=== PATIENT | male | born 1980 | race African-American/Black ===

== ENCOUNTER 2018-09-28 13:56 | Emergency (ER) | payer OTHER ==
[~2018-09-28] VITALS: Ht 172.7 cm; Wt 106.3 kg
[2018-09-28 13:58] VITALS: Ht 172.7 cm; Wt 106.3 kg
[2018-09-28] MEDS ORDERED: ASPIRIN 325 MG TAB PO STA (15:25)
[2018-09-28] MEDS ORDERED: LIDOCAINE/MYLANTA 40 ML BTL PO ONE (15:30)
--- NOTE | 2018-09-28 15:32 | ERD ---
ER Documentation Chief Complaint Chief Complaint Pt. woke up with left sided chest pain, rad to left shoulder. HPI 38-year-old male with a history of hypertension, hyperlipidemia, seizures and remote appendectomy presents to the ED complaining of chest pain. Patient reports just prior to arrival he was lying in his bed for approximately 45 minutes when he experienced unprovoked, acute onset of moderate, sharp left upper chest and shoulder pain without nausea, vomiting or diaphoresis. Mild, generalized, burning abdominal pain which localized to the epigastrium. No hematemesis, hematochezia or melanotic stools. No leg pain or swelling. No URI symptoms, cough or hemoptysis. No relieving or exacerbating factors. No fevers or chills. ROS All systems reviewed and are negative except as per history of present illness. Medications Home Meds Reported Medications Lengby-3 Acid Ethyl Esters (Lovaza) 1 Gm Capsule, 2 GM PO BID, CAP 09/28/18 Divalproex Sodium* (Depakote ER*) 500 Mg Tabsr, 500 MG PO BID, #30 TAB.SA 09/28/18 Quetiapine Fumarate* (Quetiapine Fumarate*) 300 Mg Tablet, 300 MG PO BID, TAB 09/28/18 Fenofibrate, Micronized (Fenofibrate) 134 Mg Capsule, 134 MG PO DAILY, CAP 09/28/18 Amlodipine Besylate* (Amlodipine Besylate*) 10 Mg Tablet, 10 MG PO DAILY, #30 TAB 09/28/18 Hydrochlorothiazide* (Hydrochlorothiazide*) 25 Mg Tab, 25 MG PO DAILY, #30 TAB 09/28/18 Prazosin Hcl* (Prazosin Hcl*) 1 Mg Capsule, 1 MG PO TID, CAP 09/28/18 Allergies Allergies: Coded Allergies: No Known Allergy (Unverified , 09/28/18) PMhx/Soc Reviewed in chart. As per HPI. 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 Physical Exam Vitals Vital Signs Date Temp Pulse Resp B/P (MAP) Pulse Ox O2 O2 Flow FiO2 Time Delivery Rate 09/28/18 66 16 130/63 97 Room Air 20:26 (85) 09/28/18 98.1 74 18 109/77 96 Room Air 18:17 (88) 09/28/18 97.5 99 20 135/90 97 13:58 (105) Physical Exam Const: No acute distress Head: Atraumatic Eyes: Normal Conjunctiva ENT: Normal External Ears, Nose and Mouth. Neck: Full range of motion. Nontender. No JVD. Carotids are 2+ bilateral without bruits. Resp: Clear to auscultation bilaterally Chest Wall: Reproducible left chest wall tenderness. No crepitus, ecchymosis or deformity. Cardio: Regular rate and rhythm, no murmurs Abd: Soft, non tender, non distended. Normal bowel sounds. No rebound or guarding. No masses or abnormal pulsations. Skin: No petechiae or rashes Back: No midline or flank tenderness Ext: No cyanosis, or edema. Pulses 4+ in all extremities.. No focal deficit observed. Neur: Awake and alert Psych: Normal Mood and Affect Result Diagram: 09/28/18 1533 09/28/18 1533 Results 24 hrs Laboratory Tests Test 09/28/18 15:33 09/28/18 18:40 White Blood Count 12.5 10^3/ul Red Blood Count 5.02 10^6/ul Hemoglobin 14.8 g/dl Hematocrit 45.4 % Mean Corpuscular Volume 90.4 fl Mean Corpuscular Hemoglobin 29.5 pg Mean Corpuscular Hemoglobin Concent 32.6 g/dl Red Cell Distribution Width 13.2 % Platelet Count 319 10^3/UL Mean Platelet Volume 9.2 fl Immature Granulocytes % 0.600 % Neutrophils % 72.6 % Lymphocytes % 18.8 % Monocytes % 6.3 % Eosinophils % 1.1 % Basophils % 0.6 % Nucleated Red Blood Cells % 0.0 /100WBC Immature Granulocytes # 0.070 10^3/ul Neutrophils # 9.1 10^3/ul Lymphocytes # 2.4 10^3/ul Monocytes # 0.8 10^3/ul Eosinophils # 0.1 10^3/ul Basophils # 0.1 10^3/ul Nucleated Red Blood Cells # 0.0 10^3/ul Sodium Level 141 mmol/L Potassium Level 4.1 mmol/L Chloride Level 101 mmol/L Carbon Dioxide Level 24 mmol/L Anion Gap 16 Blood Urea Nitrogen 12 mg/dl Creatinine 1.01 mg/dl Est Glomerular Filtrat Rate mL/min > 60 mL/min Glucose Level 91 mg/dl Calcium Level 9.8 mg/dl Total Bilirubin 0.3 mg/dl Direct Bilirubin 0.00 mg/dl Indirect Bilirubin 0.3 mg/dl Aspartate Amino Transf (AST/SGOT) 33 IU/L Alanine Aminotransferase (ALT/SGPT) 22 IU/L Alkaline Phosphatase 68 IU/L Troponin I < 0.012 ng/ml < 0.012 ng/ml Total Protein 8.5 g/dl Albumin 4.6 g/dl Globulin 3.90 g/dl Albumin/Globulin Ratio 1.17 Lipase 108 U/L Current Medications Medications Dose Sig/Vandana Start Time Status Last (Trade) Ordered Route PRN Stop Time Admin Dose Reason Admin Aspirin 325 mg ONCE STAT 09/28/18 DC 09/28/18 (Aspirin) PO 15:25 15:36 09/28/18 15:27 40 ml ONCE ONCE 09/28/18 DC 09/28/18 Miscellaneous PO 15:30 15:36 Medication 09/28/18 15:31 (Gi Cocktail (2)) Ketorolac 15 mg ONCE STAT 09/28/18 DC 09/28/18 Tromethamine IV 19:27 19:38 (Toradol) 09/28/18 19:28 Procedures/MDM DOCUMENTS REVIEWED: ED nurse, EKG: Time: 14:00. Sinus rhythm. Ventricular rate 95. No ectopy. Normal MO and QRS. No acute ST segment elevation or depression. Right axis deviation. My Interpretation EKG: Time: 18:13. Sinus rhythm. Ventricular rate 69. Normal MO and QRS. Right axis deviation. No acute ST segment elevation depression. No ectopy. My interpretation. IMAGING: Chest AP portable: Cardiac silhouette is normal. The costophrenic angles are clear. No effusions or infiltrates. My interpretation. MEDICAL DECISION MAKIN-year-old male with a history of hypertension, hyperlipidemia and seizures presents to the ED complaining of chest pain. The patient presents with chest pain and I considered pulmonary embolism, aortic dissection, pneumothorax among other diagnoses. Possible gastritis/GERD. Chest wall tenderness suggestive of a musculoskeletal etiology; pain resolved with ketorolac. Abdominal exam is completely benign without significant tenderness, rebound, guarding, signs of peritonitis or indication for advanced imaging. Evaluation for acute coronary syndrome was performed. The HEART score was utilized for risk stratification and found to be = 2. Repeat EKG and troponin @ 3 hours were unchanged. Based on this evaluation the patients risk of major adverse cardiac events is <1%. Shared decision making occurred with patient and the decision has been made to discharge the patient for outpatient evaluation and functional study within 72 hours. H Counseled patient regarding diagnosis, diagnostic results and plan for discharge and need for follow-up. Departure Diagnosis: Primary Impression: Chest pain with low risk for cardiac etiology Additional Impression: Gastritis Gastritis type: unspecified gastritis Chronicity: acute Gastritis bleeding: without bleeding Qualified Codes: K29.00 - Acute gastritis without bleeding Condition: Stable RUFINO FERNANDEZ MD Sep 28, 2018 15:32
[2018-09-28] MEDS ORDERED: PRAZ1CAP3 PO (15:57)
[2018-09-28] MEDS ORDERED: AMLO-147 PO (15:58)
[2018-09-28] MEDS ORDERED: HYDR25TA6 PO (15:58)
[2018-09-28] MEDS ORDERED: FENO134C PO (15:59)
[2018-09-28] MEDS ORDERED: QUET300T18 PO (15:59)
[2018-09-28] MEDS ORDERED: DIVA-75 PO (16:00)
[2018-09-28] MEDS ORDERED: OMEG1CAP2 PO (16:09)
[2018-09-28] MEDS ORDERED: KETOROLAC 15 MG INJ IV STA (19:27)
[2018-09-28 20:26] VITALS: BP 130/63; PULSE 66; RESP 16
[2018-09-28] MEDS ORDERED: FAMO-96 PO (20:38)
== END 2018-09-28 20:54 | disposition home or self-care (01) ==
LOC: E/R 13:56
DX: R07.9 Chest pain, unspecified (principal); K29.00 Acute gastritis without bleeding; I10 Essential (primary) hypertension; F17.210 Nicotine dependence, cigarettes, uncomplicated
CPT/HCPCS: 36415; 71045; 80053; 83690; 84484; 85025; 93005; 96374; 99285; J1885